=== PATIENT | male | born 1945 | race Caucasian/White ===

== ENCOUNTER 2019-04-11 15:30 | Emergency (ER) | payer MEDICARE, OTHER ==
[2019-04-11] MEDS ORDERED: Albuterol/Ipratropium 3.0-0.5 MG/3 ML Neb Soln NEB ONE (16:16)
--- NOTE | 2019-04-11 17:31 | EDM.PDOC ---
ED HPI GENERAL MEDICAL PROBLEM - General Chief Complaint: Respiratory Problem Stated Complaint: COUGH, WHEEZE Time Seen by Provider: 04/11/19 16:02 Source of Information: Reports: Patient History Limitations: Reports: No Limitations - History of Present Illness INITIAL COMMENTS - FREE TEXT/NARRATIVE: Patient was sent to us from [facility] due to his complaint of feeling slightly short of breath/developing congested cough. Symptoms started promptly after he tried to take his potassium pill and noted that things "went down the wrong pipe". He denies having previous similar problems with aspiration/ swallowing. Overall the feeling of feeling mildly SOB has improved since incident. He denies chest pain. No fevers/chills. Says it was otherwise a normal morning/day for him prior to having the swallowing incident. No other changes or new complaints reported. He initially went to the clinic. There he had a chest xray taken but no labwork performed. Vital signs were stable. The clinic felt that the patient would better benefit from an ER evaluation. He was sent here via EMS to be evaluated as the clinic did not want him to drive himself. The patient is rather annoyed at having to come to the ER, especially by EMS. - Related Data Allergies Allergy/AdvReac Type Severity Reaction Status Date / Time famotidine [From Pepcid] Allergy Cannot Verified 04/11/19 15:33 Remember tamsulosin [From Flomax] Allergy Arrhythmias Verified 04/11/19 15:34 Home Meds: Home Meds Allopurinol [Zyloprim] 300 mg PO DAILY 04/11/19 [History] Aspirin 325 mg PO DAILY 04/11/19 [History] Atenolol/Chlorthalidone [Tenoretic 50 Tablet] 1 each PO DAILY 04/11/19 [History] Benzonatate [Tessalon Perle] 100 mg PO BID PRN #30 capsule 04/11/19 [Rx] Cholecalciferol (Vitamin D3) [Vitamin D3] 5 tab PO DAILY 04/11/19 [History] Cyanocobalamin (Vitamin B12) [Vitamin B12] 1 tab PO DAILY 04/11/19 [History] Diazepam [Valium] 5 mg PO ASDIRECTED PRN 04/11/19 [History] Diclofenac Sodium [Voltaren 1%] 4 gm TOP QID PRN 04/11/19 [History] Fish Oil/[place]-3 Fatty Acids [Fish Oil 1,000 MG] 1 gram PO DAILY 04/11/19 [ History] Furosemide 40 mg PO QPM 04/11/19 [History] Furosemide 80 mg PO QAM 04/11/19 [History] Gabapentin [Neurontin] 600 mg PO QID 04/11/19 [History] Lisinopril 20 mg PO DAILY 04/11/19 [History] Loperamide HCl [Imodium A-D] 2 mg PO QID PRN 04/11/19 [History] Magnesium Oxide 400 mg PO BID 04/11/19 [History] Multivitamins [Tab-A-Tabitha] 1 tab PO DAILY 04/11/19 [History] Ondansetron HCl [Zofran] 4 mg PO TID PRN 04/11/19 [History] Potassium Chloride 40 meq PO DAILY 04/11/19 [History] Simvastatin [Zocor] 20 mg PO BEDTIME 04/11/19 [History] glipiZIDE [Glucotrol] 10 mg PO BID 04/11/19 [History] metFORMIN HCl [Metformin HCl] 1,000 mg PO BID 04/11/19 [History] Past Medical History Cardiovascular History: Reports: Heart Failure, High Cholesterol, Hypertension, Other (See Below) (Chronic lower extremity edema) Respiratory History: Reports: None Musculoskeletal History: Reports: Gout Neurological History: Reports: Neuropathy, Diabetic Psychiatric History: Reports: Anxiety Endocrine/Metabolic History: Reports: Diabetes, Type II, Other (See Below) (Low Mg and K) Hematologic History: Reports: B12 Deficiency Social & Family History - Tobacco Use Smoking Status *Q: Never Smoker - Caffeine Use Caffeine Use: Reports: None - Alcohol Use Alcohol Use History: No - Recreational Drug Use Recreational Drug Use: No ED ROS GENERAL - Review of Systems Review Of Systems: See Below Constitutional: Denies: Fever, Chills, Malaise, Weakness, Fatigue, Diaphoresis HEENT: Reports: Sinus Problem (chronic congestion issues). Denies: Throat Pain , Throat Swelling, Vision Change Respiratory: Reports: Shortness of Breath (mild, has improved overall), Cough ( see HPI). Denies: Wheezing, Pleuritic Chest Pain, Sputum, Hemoptysis Cardiovascular: Reports: Edema (chronic lower leg edema). Denies: Chest Pain, Lightheadedness, Palpitations, Syncope GI/Abdominal: Denies: Abdominal Pain, Hematemesis, Nausea, Vomiting Musculoskeletal: Reports: Other (no acute changes from baseline) Neurological: Reports: Numbness (has peripheral neuropathy). Denies: Dizziness , Headache, Change in Speech Psychiatric: Reports: No Symptoms ED EXAM, GENERAL - Physical Exam Exam: See Below General Appearance: Alert, WD/WN, No Apparent Distress Eye Exam: Bilateral Eye: EOMI, PERRL Ears: Normal External Exam Nose: No: Nasal Deformity, Nasal Swelling, Nasal Drainage Throat/Mouth: Normal Lips, Normal Voice, No Airway Compromise Head: Atraumatic, Normocephalic Neck: Supple, Non-Tender Respiratory/Chest: No Respiratory Distress, No Accessory Muscle Use, Chest Non- Tender, Other (single faint rhonchi noted mid right lung anteriorly and posteriorly.). No: Crackles, Rales, Stridor, Pleural Rub, Accessory Muscle Use , Retractions Cardiovascular: Normal Peripheral Pulses, Regular Rate, Rhythm, No Murmur Peripheral Pulses: 2+: Radial (L), Radial (R) GI/Abdominal: Soft, Non-Tender (Male) Exam: Deferred Rectal (Males) Exam: Deferred Back Exam: No: CVA Tenderness (L), CVA Tenderness (R), Muscle Spasm, Paraspinal Tenderness, Vertebral Tenderness Extremities: Pedal Edema (3+ edema bilateral lower legs/ankles. Patient says it is normal for him. Slightly worse on right. Patient notes that has been the pattern since he had knee replacment surgery on the right two months ago). No: Increased Warmth, Mottled, Pallor, Redness Neurological: Alert, Oriented, Normal Cognition, Other (equal tone/strength bilaterally) Psychiatric: Normal Affect, Normal Mood Course - Vital Signs Last Recorded V/S: Last Vital Signs Temp 37.5 C 04/11/19 15:40 Pulse 83 04/11/19 15:40 Resp 16 04/11/19 15:40 BP 134/70 04/11/19 15:40 Pulse Ox 97 04/11/19 15:40 - Orders/Labs/Meds Orders: Active Orders 24 hr Category Date Time Status RT Aerosol Therapy [RC] ASDIRECTED Care 04/11/19 16:16 Ordered Chest 1V Frontal [CR] Routine Exams 04/11/19 17:11 Ordered Labs: Laboratory Tests 04/11/19 04/11/19 Range/Units 15:50 15:50 WBC 6.9 (4.0-10.2) K/uL RBC 3.96 L (4.33-5.41) M/uL Hgb 12.3 L (13.1-16.8) g/dL Hct 35.2 L (39.0-49.0) % MCV 88.9 (84.0-98.0) fL MCH 31.1 (28.2-33.3) pg MCHC 34.9 (31.7-36.0) g/dL RDW 14.2 H (11.2-14.1) % Plt Count 178 (150-350) K/uL Neut % (Auto) 74.2 (45.0-80.0) % Lymph % (Auto) 19.0 (10.0-50.0) % Colbert % (Auto) 5.4 (2.0-14.0) % Eos % (Auto) 1.3 (0.0-5.0) % Baso % (Auto) 0.1 (0.0-2.0) % Neut # (Auto) 5.13 (1.40-7.00) K/uL Lymph # (Auto) 1.31 (0.50-3.50) K/uL Colbert # (Auto) 0.37 (0.00-1.00) K/uL Eos # (Auto) 0.09 (0.00-0.50) K/uL Baso # (Auto) 0.01 (0.00-0.20) K/uL Sodium 138 (136-145) mmol/L Potassium 3.9 (3.5-5.1) mmol/L Chloride 97 L (98-107) mmol/L Carbon Dioxide 32.6 H (21.0-32.0) mmol/L BUN 37 H (7-18) mg/dL Creatinine 1.52 H (0.51-1.17) mg/dL Est Cr Clr Drug Dosing 46.80 mL/min Estimated GFR (MDRD) 45 mL/min Glucose 194 H (74-106) mg/dL Calcium 9.3 (8.5-10.1) mg/dL Magnesium 1.8 (1.8-2.4) mg/dL Total Bilirubin 0.5 (0.2-1.0) mg/dL AST 19 (15-37) U/L ALT 26 (12-78) U/L Alkaline Phosphatase 85 (46-116) IU/L NT-Pro-B Natriuret Pep 65 (0-125) pg/mL Total Protein 7.5 (6.4-8.2) g/dL Albumin 4.0 (3.4-5.0) g/dL Meds: Medications Discontinued Medications Generic Name Dose Route Start Last Admin Trade Name Jessica PRN Reason Stop Dose Admin Albuterol/Ipratropium 3 ml 04/11/19 16:16 04/11/19 16:19 Duoneb 3.0-0.5 Mg/3 Ml NEB 04/11/19 16:17 3 ml ONETIME ONE Administration - Radiology Interpretation Free Text/Narrative:: Xray or chest was taken here at our facility. It was compared to the previous xray taken several hours ago at clinic. No interval change noted. No evidence of FB/aspiration/pneumonitis or focal consolidation noted. - Re-Assessments/Exams Free Text/Narrative Re-Assessment/Exam: 04/11/19 18:13 Patient observed for almost three hours. He did have an intermittent mildly congested cough noted, but this did not worsen. O2 sats/respiratory rate remained normal. DuoNeb given and patient felt improved. WBC normal. Patient did have mild elevation of BUN and Cr but this is not new per patient. No evidence of aspiration/ARDS/acute inflammatory change noted on xrays. No changes suggestive of CHF exacerbation noted. ProBNP normal. Plan at this time is to send the patient home with an Albuterol MDI and have him use it as needed/instructed. He was also given a Tessalon Perle Rx. Mild cough/mild SOB started after patient's self reported minor aspiration episode and it is suspected that they are linked together. Literature review reveals recommendation to avoid routine prophylactic antibiotics in cases of mild acute aspiration as prophylactic treatment has been linked to poorer outcomes. Precautions were reviewed with the patient. Plan at this time is to have him continue to watch for any additional changes or worsening symptoms. If he develops increasing SOB/fever or other signs of worsening, he is to get rechecked at the ER or clinic. Patient is agreeable with plan. Departure - Departure Time of Disposition: 17:31 Disposition: Home, Self-Care 01 Condition: Good Clinical Impression: Cough - Discharge Information *PRESCRIPTION DRUG MONITORING PROGRAM REVIEWED*: Not Applicable *COPY OF PRESCRIPTION DRUG MONITORING REPORT IN PATIENT MAGDALENA: Not Applicable Prescriptions: Benzonatate [Tessalon Perle] 100 mg PO BID PRN #30 capsule PRN Reason: Cough Instructions: Cough, Adult, [id number], How to Use a Metered Dose Inhaler Referrals: Ayleen Pool, ORDER TAKERS SUPERVISOR [Primary Care Provider] - Forms: ED Department Discharge Additional Instructions: Observe for changes. You likely managed to get a bit of water in your lung when you swallowed the "wrong way". We did not see any unusual changes on either xray that suggest increased fluid or swelling in your lungs. However swallowing the "wrong way" can cause coughing/feeling short of breath because the lung was irritated. This will usually improve on its own over the days following the incident. You can picker machine operator a prescription for Tessalon Perles that are a form of cough medicine. You take one or two of the tablets every 12 hours as needed. You were given an inhaler (Albuterol). You can take 1-2 puffs from this every 4 -6 hours to help with any cough or feeling short of breath. If your symptoms worsen, such as having a fever or increasing shortness of breath, you need to get rechecked. Otherwise follow up as needed. - My Orders Last 24 Hours: My Active Orders 04/11/19 16:16 RT Aerosol Therapy [RC] ASDIRECTED 04/11/19 17:11 Chest 1V Frontal [CR] Routine - Assessment/Plan Last 24 Hours: My Active Orders 04/11/19 16:16 RT Aerosol Therapy [RC] ASDIRECTED 04/11/19 17:11 Chest 1V Frontal [CR] Routine
== END 2019-04-11 18:20 | disposition home or self-care (01) ==
LOC: LL.ED 15:30
DX: R05 Cough (principal); I11.0 Hypertensive heart disease with heart failure; I50.9 Heart failure, unspecified; E78.00 Pure hypercholesterolemia, unspecified; F41.9 Anxiety disorder, unspecified; E11.40 Type 2 diabetes mellitus with diabetic neuropathy, unspecified; Z79.899 Other long term (current) drug therapy; Z79.82 Long term (current) use of aspirin; Z79.84 Long term (current) use of oral hypoglycemic drugs; Z88.8 Allergy status to other drugs, medicaments and biological substances
CPT/HCPCS: 36415; 71045; 80053; 83735; 83880; 85025; 99282; 99283; J7620-GY